=== PATIENT | male | born 1970 | race Caucasian/White ===

== ENCOUNTER 2021-02-05 23:09 | Emergency (ER) | payer OTHER, SELFPAY ==
--- NOTE | ~2021-02-05 | XR_ITS ---
EXAMINATION: XR TIBIA AND FIBULA, LEFT CLINICAL INFORMATION: Redness with discharge, question osteomyelitis COMPARISON: None TECHNIQUE: AP and lateral views of the left tibia and fibula were obtained. FINDINGS: Osseous alignment is anatomic. No acute fracture is seen. No cortical erosion or periosteal reaction is seen. Mild soft tissue swelling is suspected in the calf. XR/XR tibia fibula LT 2V IMPRESSION: No radiographic findings to suggest osteomyelitis. Since radiographic sensitivity for early osteomyelitis is relatively limited, however, consider further evaluation with MRI if clinically warranted.
[2021-02-05 23:11] VITALS: BP 126/80; PULSE 56; RESP 16; TEMP 36.5; O2SAT 97; BMI 27.5
--- NOTE | 2021-02-06 01:35 | ED.GENADULT ---
HPI - General Adult General Chief complaint: Wound/Laceration Stated complaint: burn on left leg, irritated Time Seen by Provider: 02/06/21 00:17 Source: patient Mode of arrival: ambulatory Limitations: no limitations History of Present Illness HPI narrative: Patient presents to ED for possible left leg wound infection. Patient states he had a burn on his left tibial since last week that he did not come to the ER for and now there is yellow drainage from the wound and redness around the room. Patient states he placed bacitracin on the wound. Patient states he is up-to-date with his tetanus. Related Data Previous Rx's Medication Instructions Recorded cephalexin 500 mg PO Q12H 7 Days #14 cap 02/06/21 doxycycline hyclate 100 mg PO BID 7 Days #14 cap 02/06/21 naproxen 500 mg PO BID PRN #20 tab 02/06/21 Allergies Allergy/AdvReac Type Severity Reaction Status Date / Time No Known Allergies Allergy Verified 02/06/21 00:50 Review of Systems Review of Systems: Yes all other systems are reviewed and are negative Constitutional: Constitutional: Reports as per HPI and Reports no additional constitutional complaints Eyes: Eyes: Reports as per HPI and Reports no additional eye complaints ENT: Reports system reviewed and no additional complaints, except as documented and Reports as per HPI Cardiovascular: Cardiovascular: Reports as per HPI and Reports no additional cardiovascular complaints Respiratory: Respiratory: Reports as per HPI and Reports no additional respiratory complaints Gastrointestinal: Gastrointestinal: Reports as per HPI and Reports no additional gastrointestinal complaints Genitourinary: Genitourinary: Reports no additional male genitourinary complaints and Reports as per HPI Musculoskeletal: Musculoskeletal: Reports no additional musculoskeletal complaints and Reports as per HPI Comments: Left leg burn Neurologic: Reports system reviewed and no additional complaints, except as documented and Reports as per HPI Psychiatric: Psychiatric: Reports no additional psychiatric complaints and Reports as per HPI [facility] Social History Social History Advance Directives: No Physical Exam Vital Signs: Vital Signs: Last Vital Signs Temp 97.7 F 02/05/21 23:11 Pulse 56 02/05/21 23:11 Resp 16 02/05/21 23:11 BP 126/80 02/05/21 23:11 Pulse Ox 97 02/05/21 23:11 Body Mass Index 27.5 Const: General: cooperative, healthy appearing, comfortable, no acute distress, well developed, alert and awake HENMT: Head: Yes normal to inspection, Yes No palpable skull fracture present, Yes normocephalic and Yes atraumatic Eyes: General: appearance normal, both eyes and all related structures Neck: Neck: Yes normal visual inspection, Yes full ROM, Yes no lymphadenopathy, Yes no meningeal signs, Yes trachea midline, Yes supple and No tender Chest: Chest palpation & inspection: normal inspection of the chest and normal palpation of entire chest wall Resp: Effort & Inspection: normal respiratory effort and able to speak in complete sentences Cardio: Jugular venous distension: no JVD Heart sounds: S1 normal heart sound present and S2 normal heart sound present GI: Inspection: Yes normal to inspection and No abdominal wall ecchymosis Palpation (GI): Soft to palpation, not firm, nontender, no guarding and not rigid : General: No CVA tenderness and Yes no CVA tenderness Back/Spine/Pelvis: Back: no CVA tenderness, No CVA tenderness and No back tenderness Skin: General skin exam: no rashes or lesions noted and hypertrophy Neuro: General: no meningeal signs Extrem: General: Yes normal to inspection and Yes full ROM Knee images: 1. Positive for erythema surrounding the wound. Positive for yellow serosanguineous pus drainage from wound. Looks like infected burn. Rest of lower extremity normal. Vascular/motor/neuro exam intact. Psych: Appearance: grossly normal, well kempt and not disheveled Course Course Course Narrative: Burn looks infected was sent for x-ray to rule out osteomyelitis. Vital signs stable. Patient states up-to-date with tetanus Reevaluation(s) Reevaluation #1: X-ray negative for osteomyelitis. Patient will be discharged with antibiotics Time: 02:30 Medical Decision Making [facility] Narrative Medical decision making narrative: Wound infection Discharge Plan Discharge Clinical Impression: Wound infection Patient Disposition: Home, Self-Care Instructions: Wound Infection (ED) Additional Instructions: Return to the ED immediately for swelling of extremity, worsening redness, development of red streaks, worsening pus drainage, chest pain, shortness of breath, fever, chills, or any other concerning symptoms. Prescriptions: New cephalexin 500 mg capsule 500 mg PO Q12H 7 Days Qty: 14 RF: 0 doxycycline hyclate 100 mg capsule 100 mg PO BID 7 Days Qty: 14 RF: 0 naproxen 500 mg tablet 500 mg PO BID PRN (Reason: pain) Qty: 20 RF: 0 Referrals: Jessica Sampson PA [Physician Store[employer] Clerk] - 2 days (Infected Burn. Discharge with antibiotics) Interventions: ED Discharge Assessment Last Done: 02/06/21 02:37 Discharge Date/Time: 02/06/21 02:38 Print Language: Welsh
== END 2021-02-06 02:38 | disposition home or self-care (01) ==
PROVIDERS: Emergency Provider Emergency Medicine; PCP Emergency Medicine
DX: L08.9 Local infection of the skin and subcutaneous tissue, unspecified (principal); M79.605 Pain in left leg; Z79.899 Other long term (current) drug therapy
CPT/HCPCS: 73590; 99283

== ENCOUNTER 2021-02-12 13:57 | Outpatient (RCR) | payer OTHER, SELFPAY | END 2021-02-25 16:00 | disposition home or self-care (01) | LOC: HO.WCC 13:57 | PROVIDERS: PCP Internal Medicine; Visit Provider Physician Assistant | DX: T24.202D Burn of second degree of unspecified site of left lower limb, except ankle and foot, subsequent encounter (principal); I87.2 Venous insufficiency (chronic) (peripheral) | CPT/HCPCS: 16020; 99212 ==